=== PATIENT | female | born 2000 | race Caucasian/White ===

== ENCOUNTER 2021-11-27 21:06 | Emergency (ER) | payer OTHER ==
[~2021-11-27] VITALS: Ht 154.9 cm; Wt 47.7 kg
--- NOTE | 2021-11-27 22:44 | NUR ---
PT STATED SHE HAD A SYNCOPAL EPISODE IN THE LOBBY, IN A SITTING POSITION. PT DID NOT HAVE ANY INJURIES. REPORTED TO DR FISCHER WHO ASKED FOR ORTHOSTATIC SITTING TO STANDING VITAL SIGNS.
[2021-11-27] MEDS ORDERED: normal saline 1000ml 1,000 ML IV ONE ×2 (22:55)
[2021-11-27] MEDS ORDERED: ondansetron/PF 4mg/2ml inj IV ONE (22:55)
[2021-11-27] MEDS ORDERED: ketorolac trometh. 30mg/ml inj. IV ONE (22:55)
[2021-11-28 02:08] VITALS: BP 133/75
== END 2021-11-28 02:10 | disposition home or self-care (01) ==
LOC: ER 21:06
DX: T88.1XXA Other complications following immunization, not elsewhere classified, initial encounter (principal); J45.909 Unspecified asthma, uncomplicated; Z88.0 Allergy status to penicillin
CPT/HCPCS: 96361; 96374; 96375; 99284; J1885; J2405; J7030